=== PATIENT | male | born 1950 | race African-American/Black ===

== ENCOUNTER 2017-03-28 02:53 | Emergency (ER) | payer OTHER ==
[~2017-03-28] VITALS: Ht 188 cm; Wt 88.0 kg
[~2017-03-28 02:53] MED LIST: 1-ME1LIQ PO; ALLO100T PO; ASPI81TA82 PO; HYDR-3533 PO; INDO50CA PO; LISI-357 PO; METF850T PO; PRED20 PO; SIMV40 PO
[2017-03-28 02:57] VITALS: BP 180/84; PULSE 106; RESP 16; TEMP 98.6; O2SAT 98
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
[2017-03-28] MEDS ORDERED: CLINDAMYCIN IV ONE (04:15)
[2017-03-28] MEDS ORDERED: SODIUM CHLORIDE 0.9% IV ONE (04:15)
[2017-03-28] MEDS ORDERED: SODIUM CHLOR 0.9% 1000 ML INJ 1,000 ML IV ONE (04:15)
[2017-03-28] MEDS ORDERED: TETANUS/DIPHTHERIA TOXOID ADULT 0.5 ML VIAL IM ONE (04:15)
[2017-03-28 04:41] LABS: AUTOMATED NEUTROPHIL # 3.6 TH/MM3 (1.8-7.7); BASOPHIL % 0.3 % (0.0-2.0); EOSINOPHIL # 0.4 TH/MM3 (0-0.4); EOSINOPHIL % 5.9 % (0.0-4.0); HEMATOCRIT 44.6 % (39.0-51.0); LYMPH % 24.2 % (9.0-44.0); LYMPHOCYTE # 1.5 TH/MM3 (1.0-4.8); MEAN CELL VOLUME 74.5 FL (80.0-100.0); MEAN CORPUSCULAR HEMOGLOBIN 23.5 PG (27.0-34.0); MEAN CORPUSCULAR HGB CONC 31.6 % (32.0-36.0); MONO % 11.8 % (0.0-8.0); NEUT % 57.8 % (16.0-70.0); PLATELET COUNT 224 TH/MM3 (150-450); RED BLOOD COUNT 5.99 MIL/MM3 (4.50-5.90); RED CELL DISTRIBUTION WIDTH 15.4 % (11.6-17.2); WHITE BLOOD COUNT 6.2 TH/MM3 (4.0-11.0)
[2017-03-28] MEDS ORDERED: CLINDAMYCIN INJ 600 MG in SODIUM CHLORIDE 0.9% INJ 100 ML IV ONE (04:45)
[2017-03-28 04:51] LABS: HEMO FLAGS AUTO DIFF
[2017-03-28 05:05] LABS: BICARBONATE 22.6 MEQ/L (21.0-32.0); POTASSIUM 4.2 MEQ/L (3.5-5.1)
[2017-03-28 05:28] LABS: SCAN/DIFF AUTO DIFF CONFIRMED
[2017-03-28] MEDS ORDERED: IOHEXOL 350 MG/ML 10 ML VIAL (for RAD DIAG) IV ONE (05:48)
--- NOTE | 2017-03-28 06:07 | RADRPT ---
EXAM DATE/TIME: 03/28/2017 05:45 [facility] COMPARISON: Report only CT ABDOMEN & PELVIS W CONTRAST, November 06, 2010, 22:46. INDICATIONS : Redness and swelling on skin. Evaluate abscess. IV CONTRAST: 100 cc Omnipaque 350 (iohexol) IV ORAL CONTRAST: No oral contrast ingested. RADIATION DOSE: 7.42 CTDIvol (mGy) MEDICAL HISTORY : Hypertension. Diabetes mellitus type 2. Liver laceration. SURGICAL HISTORY : Liver laceration repair. ENCOUNTER: Initial ACUITY: 2 weeks PAIN SCALE: 6/10 LOCATION: anterior abdomen TECHNIQUE: Volumetric scanning of the abdomen and pelvis was performed. Using automated exposure control and ad justment of the mA and/or kV according to patient size, radiation dose was kept as low as reasonably achievable to obtain optimal diagnostic quality images. FINDINGS: LOWER LUNGS: Mild bibasilar atelectasis. LIVER: The liver is fatty infiltrated. Small stones are seen in the gallbladder. No duct stone or ductal dil atation. SPLEEN: Normal size without lesion. PANCREAS: Within normal limits. KIDNEYS: Normal in size and shape. There is no mass, stone or hydronephrosis. ADRENAL GLANDS: Within normal limits. VASCULAR: There is an abdominal aortic aneurysm with mural thrombus. The vessel measures approximately 3.9 cm m aximum. Similar findings are seen of the iliac arteries. Right iliac artery measures 2.7 cm maximum, the left around 1 cm. BOWEL/MESENTERY: The stomach, small bowel, and colon demonstrate no acute abnormality. There is no free intraperitone al air or fluid. The appendix is well-visualized, normal. ABDOMINAL WALL: The skin and subcutaneous tissues at the umbilicus are indurated. A very superficial fluid collection just beneath the skin is seen slightly left of midline, measures about 11 mm in size, series 2 image 52. No evidence of leak or impending rupture. RETROPERITONEUM: There is no lymphadenopathy. BLADDER: No wall thickening or mass. REPRODUCTIVE: Heterogeneous enlargement of the prostate. INGUINAL: There is no lymphadenopathy or hernia. MUSCULOSKELETAL: No acute bony abnormality. CONCLUSION: 1. Focal skin and superficial subcutaneous induration at the umbilicus. 11 mm abscess is seen just be neath the skin. There is a tiny fat-containing umbilical hernia but does not appear to be directly co ntributory. There is no bowel herniation. 2. There is aneurysmal dilatation of the abdominal aorta and right common iliac artery with atheroscl erosis and mural thrombus. No inflammatory changes or other evidence of leak or impending rupture. 3. Fatty liver. 4. Small stones in an otherwise normal-appearing gallbladder. No ductal stone or ductal dilatation. 5. Trace atelectasis of both lung bases. Jourdan Moon MD on March 28, 2017 at 5:57 Board Certified Radiologist. This report was verified electronically.
[2017-03-28] MEDS ORDERED: HYDR-3533 PO (06:28)
== END 2017-03-28 07:37 | disposition home or self-care (01) ==
LOC: NEPD 02:53
DX: L02.211 Cutaneous abscess of abdominal wall (principal); I71.4 Abdominal aortic aneurysm, without rupture; E11.9 Type 2 diabetes mellitus without complications; I10 Essential (primary) hypertension; E78.00 Pure hypercholesterolemia, unspecified; Z23 Encounter for immunization; Z79.84 Long term (current) use of oral hypoglycemic drugs; Z87.2 Personal history of diseases of the skin and subcutaneous tissue; Z87.891 Personal history of nicotine dependence
CPT/HCPCS: 10060; 74177; 80048; 85025; 90471; 90714; 96374; 99284; J7030; Q9967

== ENCOUNTER 2017-06-20 01:30 | Emergency (ER) | payer OTHER ==
[~2017-06-20] VITALS: Ht 188 cm; Wt 88.0 kg
[2017-06-20 01:32] VITALS: BP 157/97; PULSE 92; RESP 16; TEMP 98.4; O2SAT 98
[2017-06-20] MEDS ORDERED: SODIUM CHLOR 0.9% 1000 ML INJ 1,000 ML IV SCH (01:59)
[2017-06-20] MEDS ORDERED: SODIUM CHLORIDE 0.9% FLUSH 10 ML FLUSH IV FLUSH PRN (02:00)
[2017-06-20 02:09] VITALS: O2SAT 98
[2017-06-20] MEDS ORDERED: ASPI81CH37 CHEW (02:13)
[2017-06-20] MEDS ORDERED: SIMV20TA PO (02:13)
[2017-06-20] MEDS ORDERED: CARV3.12 PO (02:13)
[2017-06-20] MEDS ORDERED: LISI2.5T3 PO (02:13)
[2017-06-20] MEDS ORDERED: AMLO2.5T PO (02:13)
[2017-06-20] MEDS ORDERED: METF1000 PO (02:13)
[2017-06-20] MEDS ORDERED: NOVORP2 SQ (02:13)
--- NOTE | 2017-06-20 02:19 | PD ---
HPI Chief Complaint: Abdominal Pain Time Seen by Provider: 02:10 Travel History International Travel<30 days: No Contact w/Intl Traveler<30days: No Traveled to known affect area: No History of Present Illness HPI Patient is a 66-year-old male history of hypertension, hyperlipidemia, diabetes , AAA, presents to emergency room with complaints of abdominal pain. Patient reports that he had a few episodes of diarrhea this afternoon, reports that this has since resolved. Patient reports that around 8:30 PM tonight, he began to have increased right lower quadrant pain. Patient reports the pain has been constant, nothing makes pain better or worse. Patient reports that he has had no nausea or vomiting. Patient denies any fevers or chills. Patient reports that he was concerned as in February, he was diagnosed with a 3.9 cm AAA with mural thrombus which the LA has been following. Patient with no chest pain or shortness of breath at this time. Patient with no radiating pain. Patient denies dysuria, urinary urgency or frequency. PFSH Past Medical History Blood Disorders: No Anxiety: No Depression: No Heart Rhythm Problems: No Cancer: No Cardiac Catheterization: No Cardiovascular Problems: Yes (HTN, AAA) High Cholesterol: Yes Congestive Heart Failure: No Diabetes: Yes Patient Takes Glucophage: Yes (06/19/17) Gastrointestinal Disorders: No Genitourinary: No Hypertension: Yes Implanted Vascular Access Dvce: No Musculoskeletal: No Neurologic: No Reproductive: No Respiratory: No Immunizations Current: Yes Past Surgical History Abdominal Surgery: Yes (LIVER LAC REPAIR) Coronary Artery Bypass Graft: No Family History Family Myocardial Infarction: Yes (maybe mother) Social History Alcohol Use: Yes (WEEKENDS) Tobacco Use: No (/2 PPD QUIT IN JUL 2016) Substance Use: No Allergies-Medications (Allergen,Severity, Reaction): Coded Allergies: No Known Allergies (Verified , 06/20/17) Reported Meds & Prescriptions Reported Meds & Active Scripts Active Lortab (Hydrocodone-Acetaminophen) 5-325 Mg Tab 1 Tab PO Q4H PRN Reported Aspirin Low Dose (Aspirin) 81 Mg Chew 81 Mg CHEW DAILY Lisinopril 2.5 Mg Tab 2.5 Mg PO DAILY Simvastatin 20 Mg Tab 20 Mg PO DAILY Metformin (Metformin HCl) 1,000 Mg Tab 1,000 Mg PO BIDPC With meals Carvedilol 3.125 Mg Tab 3.125 Mg PO BID Amlodipine (Amlodipine Besylate) 2.5 Mg Tab 2.5 Mg PO DAILY Novolin R Inj (Insulin Human Regular) 1,000 Unit/10 Ml Vial 13 Units SQ DAILY Review of Systems General / Constitutional: No: Fever Eyes: No: Visual changes HENT: No: Headaches Cardiovascular: No: Chest Pain or Discomfort Respiratory: No: Shortness of Breath Gastrointestinal: Positive: Abdominal Pain Genitourinary: No: Dysuria Musculoskeletal: No: Pain Skin: No Rash Neurologic: No: Weakness Psychiatric: No: Depression Endocrine: No: Polydipsia Hematologic/Lymphatic: No: Easy Bruising Physical Exam Narrative GENERAL: Mild distress SKIN: Focused skin assessment warm/dry. HEAD: Atraumatic. Normocephalic. EYES: Pupils equal and round. No scleral icterus. No injection or drainage. ENT: No nasal bleeding or discharge. Mucous membranes pink and moist. NECK: Trachea midline. No JVD. CARDIOVASCULAR: Regular rate and rhythm. No murmur appreciated. RESPIRATORY: No accessory muscle use. Clear to auscultation. Breath sounds equal bilaterally. GASTROINTESTINAL: Abdomen soft, increased tenderness to the right lower quadrant with no rebound or guarding on exam. MUSCULOSKELETAL: No obvious deformities. No clubbing. No cyanosis. No edema. NEUROLOGICAL: Awake and alert. No obvious cranial nerve deficits. Motor grossly within normal limits. Normal speech. PSYCHIATRIC: Appropriate mood and affect; insight and judgment normal. Data Data Last Documented VS Vital Signs Date Time Temp Pulse Resp B/P Pulse Ox O2 Delivery O2 Flow Rate FiO2 06/20/17 04:00 70 13 127/85 94 Room Air 06/20/17 01:32 98.4 Orders Complete Blood Count With Diff (06/20/17 01:59) Comprehensive Metabolic Panel (06/20/17 01:59) Lipase (06/20/17 01:59) Prothrombin Time / Inr (Pt) (06/20/17 01:59) Act Partial Throm Time (Ptt) (06/20/17 01:59) Urinalysis - C+S If Indicated (06/20/17 01:59) Iv Access Insert/Monitor (06/20/17 01:59) Ecg Monitoring (06/20/17 01:59) Oximetry (06/20/17 01:59) Sodium Chlor 0.9% 1000 Ml Inj (Ns 1000 M (06/20/17 01:59) Sodium Chloride 0.9% Flush (Ns Flush) (06/20/17 02:00) Ct Abd/Pel W Iv Contrast(Rout) (06/20/17 02:14) Iohexol 350 Inj (Omnipaque 350 Inj) (06/20/17 03:52) Labs Laboratory Tests Test 06/20/17 02:05 White Blood Count 6.7 TH/MM3 Red Blood Count 5.49 MIL/MM3 Hemoglobin 13.4 GM/DL Hematocrit 40.9 % Mean Corpuscular Volume 74.4 FL Mean Corpuscular Hemoglobin 24.3 PG Mean Corpuscular Hemoglobin 32.7 % Concent Red Cell Distribution Width 15.8 % Platelet Count 209 TH/MM3 Mean Platelet Volume 8.4 FL Neutrophils (%) (Auto) 46.5 % Lymphocytes (%) (Auto) 39.6 % Monocytes (%) (Auto) 10.6 % Eosinophils (%) (Auto) 2.8 % Basophils (%) (Auto) 0.5 % Neutrophils # (Auto) 3.1 TH/MM3 Lymphocytes # (Auto) 2.6 TH/MM3 Monocytes # (Auto) 0.7 TH/MM3 Eosinophils # (Auto) 0.2 TH/MM3 Basophils # (Auto) 0.0 TH/MM3 CBC Comment DIFF FINAL Differential Comment Prothrombin Time 10.3 SEC Prothromb Time International 0.9 RATIO Ratio Activated Partial 28.2 SEC Thromboplast Time Urine Color YELLOW Urine Turbidity CLEAR Urine pH 5.5 Urine Specific [employer] 1.014 Urine Protein NEG mg/dL Urine Glucose (UA) NEG mg/dL Urine Ketones NEG mg/dL Urine Occult Blood NEG Urine Nitrite NEG Urine Bilirubin NEG Urine Urobilinogen LESS THAN 2.0 MG/DL Urine Leukocyte Esterase NEG Urine RBC LESS THAN 1 /hpf Urine WBC 1 /hpf Urine Squamous Epithelial <1 /hpf Cells Urine Bacteria RARE /hpf Urine Mucus FEW /lpf Microscopic Urinalysis Comment CULT NOT INDICATED Sodium Level 138 MEQ/L Potassium Level 3.8 MEQ/L Chloride Level 103 MEQ/L Carbon Dioxide Level 26.1 MEQ/L Anion Gap 9 MEQ/L Blood Urea Nitrogen 9 MG/DL Creatinine 1.11 MG/DL Estimat Glomerular Filtration 80 ML/MIN Rate Random Glucose 135 MG/DL Calcium Level 8.7 MG/DL Total Bilirubin 0.4 MG/DL Aspartate Amino Transf 21 U/L (AST/SGOT) Alanine Aminotransferase 33 U/L (ALT/SGPT) Alkaline Phosphatase 94 U/L Total Protein 7.7 GM/DL Albumin 3.7 GM/DL Lipase 215 U/L MDM Medical Decision Making Medical Screen Exam Complete: Yes Emergency Medical Condition: Yes Interpretation(s) Vital Signs Date Time Temp Pulse Resp B/P Pulse Ox O2 Delivery O2 Flow Rate FiO2 06/20/17 02:09 98 Room Air 06/20/17 01:32 98.4 92 16 157/97 98 Differential Diagnosis Differential includes ruptured aortic aneurysm, colitis, colitis, appendicitis, constipation, cystitis, UTI Narrative Course Patient is a 66-year-old male who presents to emergency room with complaints of right lower quadrant abdominal pain. Pain started around 8:30 PM last night and has been constant. On evaluation, patient has right lower quadrant pain with guarding on exam, plan to obtain CT abdomen pelvis to evaluate for possible appendicitis and to evaluate abdominal aortic aneurysm which is 3.9 centimeters size last measured in February 2017. Vital Signs Date Time Temp Pulse Resp B/P Pulse Ox O2 Delivery O2 Flow Rate FiO2 06/20/17 02:09 98 Room Air 06/20/17 01:32 98.4 92 16 157/97 98 Laboratory Tests Test 06/20/17 02:05 White Blood Count 6.7 TH/MM3 (4.0-11.0) Red Blood Count 5.49 MIL/MM3 (4.50-5.90) Hemoglobin 13.4 GM/DL (13.0-17.0) Hematocrit 40.9 % (39.0-51.0) Mean Corpuscular Volume 74.4 FL (80.0-100.0) Mean Corpuscular Hemoglobin 24.3 PG (27.0-34.0) Mean Corpuscular Hemoglobin 32.7 % Concent (32.0-36.0) Red Cell Distribution Width 15.8 % (11.6-17.2) Platelet Count 209 TH/MM3 (150-450) Mean Platelet Volume 8.4 FL (7.0-11.0) Neutrophils (%) (Auto) 46.5 % (16.0-70.0) Lymphocytes (%) (Auto) 39.6 % (9.0-44.0) Monocytes (%) (Auto) 10.6 % (0.0-8.0) Eosinophils (%) (Auto) 2.8 % (0.0-4.0) Basophils (%) (Auto) 0.5 % (0.0-2.0) Neutrophils # (Auto) 3.1 TH/MM3 (1.8-7.7) Lymphocytes # (Auto) 2.6 TH/MM3 (1.0-4.8) Monocytes # (Auto) 0.7 TH/MM3 (0-0.9) Eosinophils # (Auto) 0.2 TH/MM3 (0-0.4) Basophils # (Auto) 0.0 TH/MM3 (0-0.2) CBC Comment DIFF FINAL Differential Comment Prothrombin Time 10.3 SEC (9.8-11.6) Prothromb Time International 0.9 RATIO Ratio Activated Partial 28.2 SEC Thromboplast Time (24.3-30.1) Urine Color YELLOW (YELLW/STRAW) Urine Turbidity CLEAR (CLEAR) Urine pH 5.5 (5.0-8.5) Urine Specific [place] 1.014 (1.002-1.035) Urine Protein NEG mg/dL (NEG-TRACE) Urine Glucose (UA) NEG mg/dL (NEG) Urine Ketones NEG mg/dL (NEG) Urine Occult Blood NEG (NEG) Urine Nitrite NEG (NEG) Urine Bilirubin NEG (NEG) Urine Urobilinogen LESS THAN 2.0 MG/DL (LESS THAN 2.0) Urine Leukocyte Esterase NEG (NEG) Urine RBC LESS THAN 1 /hpf (0-3) Urine WBC 1 /hpf (0-5) Urine Squamous Epithelial <1 /hpf (0-5) Cells Urine Bacteria RARE /hpf (NONE) Urine Mucus FEW /lpf (OCC) Microscopic Urinalysis Comment CULT NOT INDICATED Sodium Level 138 MEQ/L (136-145) Potassium Level 3.8 MEQ/L (3.5-5.1) Chloride Level 103 MEQ/L (98-107) Carbon Dioxide Level 26.1 MEQ/L (21.0-32.0) Anion Gap 9 MEQ/L (5-15) Blood Urea Nitrogen 9 MG/DL (7-18) Creatinine 1.11 MG/DL (0.60-1.30) Estimat Glomerular Filtration 80 ML/MIN (>89) Rate Random Glucose 135 MG/DL (74-106) Calcium Level 8.7 MG/DL (8.5-10.1) Total Bilirubin 0.4 MG/DL (0.2-1.0) Aspartate Amino Transf 21 U/L (15-37) (AST/SGOT) Alanine Aminotransferase 33 U/L (12-78) (ALT/SGPT) Alkaline Phosphatase 94 U/L (45-117) Total Protein 7.7 GM/DL (6.4-8.2) Albumin 3.7 GM/DL (3.4-5.0) Lipase 215 U/L (73-393) CT abdomen pelvis shows a aortic iliac aneurysm with no change when compared to prior. There was a maximum aortic diameter of 4.2 cm. I reviewed all labs and all studies as well as all labs and all findings with patient detail. Patient will follow-up with his primary care doctor and return to the emergency room as needed. Signs and symptoms of an acute abdomen was reviewed with patient, he will return to ER if he develops any of these symptoms Diagnosis Primary Impression: Abdominal aortic aneurysm (AAA) 3.0 cm to 5.5 cm in diameter in male Additional Impression: Abdominal pain Patient Instructions: General Instructions Additional Instructions: Please provide patient with a copy of his lab work and studies at discharge Return to emergency room if symptoms worsen or progress Return to the emergency room as needed Please follow up with your primary care doctor Disposition: 01 DISCHARGE HOME Condition: Stable Alexandrea Cedeno DO Jun 20, 2017 02:19 Alexandrea Cedeno DO Jun 20, 2017 02:19
[2017-06-20 02:36] LABS: AUTOMATED NEUTROPHIL # 3.1 TH/MM3 (1.8-7.7); BASOPHIL % 0.5 % (0.0-2.0); EOSINOPHIL # 0.2 TH/MM3 (0-0.4); EOSINOPHIL % 2.8 % (0.0-4.0); HEMATOCRIT 40.9 % (39.0-51.0); HEMO FLAGS DIFF FINAL; LYMPH % 39.6 % (9.0-44.0); LYMPHOCYTE # 2.6 TH/MM3 (1.0-4.8); MEAN CELL VOLUME 74.4 FL (80.0-100.0); MEAN CORPUSCULAR HEMOGLOBIN 24.3 PG (27.0-34.0); MEAN CORPUSCULAR HGB CONC 32.7 % (32.0-36.0); MONO % 10.6 % (0.0-8.0); NEUT % 46.5 % (16.0-70.0); PLATELET COUNT 209 TH/MM3 (150-450); RED BLOOD COUNT 5.49 MIL/MM3 (4.50-5.90); RED CELL DISTRIBUTION WIDTH 15.8 % (11.6-17.2); WHITE BLOOD COUNT 6.7 TH/MM3 (4.0-11.0)
[2017-06-20 02:49] LABS: BACTERIA, URINE RARE /hpf; BLOOD, URINE NEG (NEG); COMMENT (UR) CULT NOT INDICATED; CULTURE IF INDICATED CULT NOT INDICATED; GLUCOSE,URINE NEG (NEG); KETONE, URINE NEG (NEG); MUCUS URINE FEW /lpf (OCC); NITRITE,URINE NEG (NEG); PH, URINE 5.5 (5.0-8.5); SQUAMOUS EPITHELIAL CELL URINE <1 /hpf (0-5); URINE COLOR YELLOW (YELLW/STRAW)
[2017-06-20 02:55] LABS: APTT (PATIENT) 28.2 SEC (24.3-30.1); INTERNATIONAL NORMALIZED RATIO 0.9 RATIO; PROTHROMBIN TIME - PATIENT 10.3 SEC (9.8-11.6)
[2017-06-20 03:04] LABS: ALT (GPT) 33 U/L (12-78); ANION GAP 9 MEQ/L (5-15); AST (GOT) 21 U/L (15-37); BICARBONATE 26.1 MEQ/L (21.0-32.0); BLOOD UREA NITROGEN 9 MG/DL (7-18); CHLORIDE 103 MEQ/L (98-107); GLOMERULAR FILTRATION RATE 80 ML/MIN (>89); POTASSIUM 3.8 MEQ/L (3.5-5.1); SODIUM (NA) 138 MEQ/L (136-145)
[2017-06-20 03:06] LABS: ALKALINE PHOSPHATASE 94 U/L (45-117); TOTAL BILIRUBIN ADULT 0.4 MG/DL (0.2-1.0)
[2017-06-20] MEDS ORDERED: IOHEXOL 350 MG/ML 10 ML VIAL (for RAD DIAG) IV ONE (03:52)
[2017-06-20 04:00] VITALS: BP 127/85; PULSE 70; RESP 13; O2SAT 94
--- NOTE | 2017-06-20 04:19 | RADRPT ---
EXAM DATE/TIME: 06/20/2017 03:43 [facility] COMPARISON: CT ABDOMEN & PELVIS W CONTRAST, March 28, 2017, 5:45. INDICATIONS : Abdominal pain. IV CONTRAST: 100 cc Omnipaque 350 (iohexol) IV ORAL CONTRAST: No oral contrast ingested. RADIATION DOSE: 9.64 CTDIvol (mGy) MEDICAL HISTORY : Hypertension. Aneurysm, abdominal. Diabetes mellitus type 2. SURGICAL HISTORY : Liver laceration repair. ENCOUNTER: Initial ACUITY: 1 day PAIN SCALE: 8/10 LOCATION: abdomen TECHNIQUE: Volumetric scanning of the abdomen and pelvis was performed. Using automated exposure control and ad justment of the mA and/or kV according to patient size, radiation dose was kept as low as reasonably achievable to obtain optimal diagnostic quality images. DICOM format image data is available electro nically for review and comparison. FINDINGS: LOWER LUNGS: Mild bibasilar atelectasis. LIVER: Hepatic steatosis. No evidence of focal mass or biliary ductal dilatation. Dependent calcified gallst ones. SPLEEN: Normal size without lesion. PANCREAS: Within normal limits. KIDNEYS: Normal in size and shape. There is no mass, stone or hydronephrosis. ADRENAL GLANDS: Within normal limits. VASCULAR: Aortoiliac aneurysm with no change in configuration from prior. Dilatation involves the infrarenal ao rta and the right common iliac. Maximum aortic diameter is 4.2 cm. Right common iliac diameter is 2.9 cm. BOWEL/MESENTERY: The stomach, small bowel, and colon demonstrate no acute abnormality. There is no free intraperitone al air or fluid. ABDOMINAL WALL: Within normal limits. RETROPERITONEUM: There is no lymphadenopathy. BLADDER: No wall thickening or mass. REPRODUCTIVE: Prostate enlarged and heterogeneous. No pelvic mass or free fluid. INGUINAL: There is no lymphadenopathy or hernia. MUSCULOSKELETAL: Within normal limits for patient age. CONCLUSION: Grossly stable aortoiliac aneurysm appearance. Hepatic steatosis and gallstones. Mild lung base atelectasis. Jourdan Maldnoado MD on June 20, 2017 at 4:09 Board Certified Radiologist. This report was verified electronically.
== END 2017-06-20 05:01 | disposition home or self-care (01) ==
LOC: NEPC 01:30
DX: I71.4 Abdominal aortic aneurysm, without rupture (principal)
CPT/HCPCS: 74177; 80053; 81001; 83690; 85025; 85610; 85730; 96360; 99285; J7030; Q9967

== ENCOUNTER 2017-08-26 11:50 | Emergency (ER) | payer OTHER ==
[~2017-08-26] VITALS: Ht 185.4 cm; Wt 90.0 kg
[~2017-08-26 11:50] MED LIST changes: -1-ME1LIQ PO; -ALLO100T PO; +AMLO2.5T PO; +ASPI81CH37 CHEW; -ASPI81TA82 PO; +CARV3.12 PO; -INDO50CA PO; -LISI-357 PO; +LISI2.5T3 PO; +METF1000 PO; -METF850T PO; +NOVORP2 SQ; -PRED20 PO; +SIMV20TA PO; -SIMV40 PO
[2017-08-26 11:51] VITALS: BP 151/94; PULSE 96; RESP 18; TEMP 98.3; O2SAT 97
--- NOTE | 2017-08-26 11:56 | PD ---
Physical Exam Time Seen by Provider: 11:56 Narrative 67 y/o male here with pain to left upper back, worse with movement. Vital signs reviewed. Seen at triage desk. Awaiting bed placement. Data Data Last Documented VS Vital Signs Date Time Temp Pulse Resp B/P (MAP) Pulse Ox O2 Delivery O2 Flow Rate FiO2 08/26/17 11:51 98.3 96 18 151/94 (113) 97 Room Air [facility] Medical Record Reviewed: Yes Supervised Visit with MORENO: Jon Thompson Aug 26, 2017 11:56
[2017-08-26] MEDS ORDERED: SODIUM CHLORIDE 0.9% FLUSH 10 ML FLUSH IVF PRN (12:45)
--- NOTE | 2017-08-26 12:46 | PD ---
HPI Chief Complaint: Back/ Neck Pain or Injury Time Seen by Provider: 12:31 Travel History International Travel<30 days: No Contact w/Intl Traveler<30days: No Traveled to known affect area: No History of Present Illness HPI Patient comes in complaining of left upper back pain over his left shoulder blade ongoing for several months. Patient states he spoke to his primary care doctor at the beginning of the a year but do not have anything done about it. Pain is worse with certain movement. Pain improves with rest. Patient denies any associated chest pain, shortness of breath, nausea or tingling anywhere, nausea, vomiting, fevers, trauma, bowel pain, loss or change in bowel or bladder. Patient states he feels it got worse last night. PFSH Past Medical History Blood Disorders: No Anxiety: No Depression: No Heart Rhythm Problems: No Cancer: No Cardiac Catheterization: No Cardiovascular Problems: Yes (AAA) High Cholesterol: Yes Congestive Heart Failure: No Diabetes: Yes Patient Takes Glucophage: Yes Gastrointestinal Disorders: No Genitourinary: No Hypertension: Yes Implanted Vascular Access Dvce: No Musculoskeletal: No Neurologic: No Reproductive: No Respiratory: No Immunizations Current: Yes Past Surgical History Abdominal Surgery: Yes (LIVER LAC REPAIR) Coronary Artery Bypass Graft: No Family History Family Myocardial Infarction: Yes (maybe mother) Social History Alcohol Use: Yes (WEEKENDS) Tobacco Use: No (1/2 PPD QUIT IN JUL 2016) Substance Use: No Allergies-Medications (Allergen,Severity, Reaction): Coded Allergies: No Known Allergies (Verified , 06/20/17) Reported Meds & Prescriptions Reported Meds & Active Scripts Active Reported Aspirin Low Dose (Aspirin) 81 Mg Chew 81 Mg CHEW DAILY Lisinopril 2.5 Mg Tab 2.5 Mg PO DAILY Simvastatin 20 Mg Tab 20 Mg PO DAILY Metformin (Metformin HCl) 1,000 Mg Tab 1,000 Mg PO BIDPC With meals Carvedilol 3.125 Mg Tab 3.125 Mg PO BID Amlodipine (Amlodipine Besylate) 2.5 Mg Tab 2.5 Mg PO DAILY Novolin R Inj (Insulin Human Regular) 1,000 Unit/10 Ml Vial 15 Units SQ DAILY Review of Systems Except as stated in HPI: all other systems reviewed are Neg Physical Exam Narrative GENERAL: Well-developed, well nourished, in no acute distress, and non-ill appearing. SKIN: Focused skin assessment warm and dry. HEAD: Atraumatic. Normocephalic. EYES: Pupils equal and round. EOMI. No scleral icterus. No injection or drainage. ENT: No nasal bleeding or discharge. Mucous membranes pink and moist. NECK: Trachea midline. No JVD. Supple. No nuclear rigidity. CARDIOVASCULAR: Regular rate and rhythm. No murmur appreciated. Radial pulses 2+, nontender, equal bilaterally. RESPIRATORY: No accessory muscle use. No respiratory distress. Clear to auscultation. Breath sounds equal bilaterally. Patient reports tenderness to palpation over left medial scapula were patient states his pain is. There is no crepitus or fluctuation. MUSCULOSKELETAL: No obvious deformities. No clubbing. No cyanosis. No edema. Full range of motion. NEUROLOGICAL: Awake and alert. No obvious cranial nerve deficits. Motor grossly within normal limits. Normal speech. PSYCHIATRIC: Appropriate mood and affect; insight and judgment normal. Data Data Last Documented VS Vital Signs Date Time Temp Pulse Resp B/P (MAP) Pulse Ox O2 Delivery O2 Flow Rate FiO2 08/26/17 13:41 Room Air 08/26/17 13:41 08/26/17 11:51 98.3 96 18 97 Orders Orders Electrocardiogram (08/26/17 12:42) Basic Metabolic Panel (Bmp) (08/26/17 12:42) Ckmb (Isoenzyme) Profile (08/26/17 12:42) Complete Blood Count With Diff (08/26/17 12:42) Magnesium (Mg) (08/26/17 12:42) Prothrombin Time / Inr (Pt) (08/26/17 12:42) Act Partial Throm Time (Ptt) (08/26/17 12:42) Troponin I (08/26/17 12:42) Chest, Single Ap (08/26/17 12:42) Ecg Monitoring (08/26/17 12:42) Bilateral Bp Monitoring (08/26/17 12:42) Iv Access Insert/Monitor (08/26/17 12:42) Oximetry (08/26/17 12:42) Oxygen Administration (08/26/17 12:42) Sodium Chloride 0.9% Flush (Ns Flush) (08/26/17 12:45) CKMB (08/26/17 13:40) CKMB% (08/26/17 13:40) Labs Laboratory Tests Test 08/26/17 13:40 White Blood Count 4.2 TH/MM3 Red Blood Count 5.57 MIL/MM3 Hemoglobin 13.2 GM/DL Hematocrit 42.6 % Mean Corpuscular Volume 76.4 FL Mean Corpuscular Hemoglobin 23.7 PG Mean Corpuscular Hemoglobin Concent 31.1 % Red Cell Distribution Width 15.0 % Platelet Count 203 TH/MM3 Mean Platelet Volume 8.3 FL Neutrophils (%) (Auto) 46.0 % Lymphocytes (%) (Auto) 35.5 % Monocytes (%) (Auto) 13.9 % Eosinophils (%) (Auto) 4.0 % Basophils (%) (Auto) 0.6 % Neutrophils # (Auto) 1.9 TH/MM3 Lymphocytes # (Auto) 1.5 TH/MM3 Monocytes # (Auto) 0.6 TH/MM3 Eosinophils # (Auto) 0.2 TH/MM3 Basophils # (Auto) 0.0 TH/MM3 CBC Comment DIFF FINAL Differential Comment Prothrombin Time 10.8 SEC Prothromb Time International Ratio 1.0 RATIO Activated Partial Thromboplast Time 24.5 SEC Blood Urea Nitrogen 12 MG/DL Creatinine 0.93 MG/DL Random Glucose 123 MG/DL Calcium Level 9.3 MG/DL Magnesium Level 2.1 MG/DL Sodium Level 138 MEQ/L Potassium Level 4.0 MEQ/L Chloride Level 104 MEQ/L Carbon Dioxide Level 27.0 MEQ/L Anion Gap 7 MEQ/L Estimat Glomerular Filtration Rate 98 ML/MIN Total Creatine Kinase 463 U/L Creatine Kinase MB 4.7 NG/ML Creatine Kinase MB % 1.0 % Troponin I 0.02 NG/ML [facility] Medical Decision Making Medical Screen Exam Complete: Yes Emergency Medical Condition: Yes Interpretation(s) Chest x-ray read by the radiologist shows: No acute disease. EKG reviewed by Dr. Torres sinus rhythm ventricular rate of 86. No STEMI. Differential Diagnosis Atypical chest pain, acute coronary syndrome, pneumonia, pneumothorax, costochondritis, musculoskeletal pain, other Narrative Course The patient presented complaining of back pain. There was no history of recent fall or blunt trauma. However, history elicited likely causing muscular pain. There was no evidence to support genitourinary etiology. There is also no evidence to suggest vascular pathology such as AAA dissection. No fevers or other evidence to suspect infectious processes, abscess, osteomyelitis etc. x- ray, EKG, labs were reassuring. The patients neurological exam is normal with normal motor and sensory. There is no saddle paresthesias reported and no bowel or bladder incontinence or retention. I suspect the pain is mechanical in nature. Clinical suspicion, plan of care and management was discussed with the patient. The patient was instructed to follow up with their health care provider. The patient was also instructed to return if the pain worsened, changed, or developed weakness or bowel or bladder trouble. The patient agreed with plan. Patient in no obvious distress upon re-evaluation. All pertinent laboratory/ Radiology result(s) discussed with patient. Discussed patient with Dr. Torres prior to discharge, who is in agreement with plan of care and disposition. Any questions/concerns in reference to patient diagnosis/ condition discussed and clarified prior to patient's discharge. Reinforced sheer importance of close follow up with patient's primary physician or primary care clinic. Instructed patient to return to ED immediately, if symptoms return/ worsen. Patient showed understanding of above instructions. Further instructions and recommendations were detailed in discharge paperwork. Patient ambulated without difficulty out of ED at discharge. Diagnosis Primary Impression: Musculoskeletal back pain Patient Instructions: General Instructions, Musculoskeletal Pain (ED) Additional Instructions: Follow-up with your primary care physician in 3-5 days for reevaluation. Use [id number] Tylenol as needed for pain. Follow instructions on the packaging. Return to the emergency department if symptoms get worse. Disposition: 01 DISCHARGE HOME Condition: Stable Daron Bravo Aug 26, 2017 12:46
--- NOTE | 2017-08-26 13:57 | RADRPT ---
EXAM DATE/TIME: 08/26/2017 13:03 [facility] COMPARISON: CHEST SINGLE AP, January 13, 2016, 22:33. INDICATIONS : Chest pains posterior left chest from scapula radiating into left chest wall. MEDICAL HISTORY : None. SURGICAL HISTORY : None. ENCOUNTER: Initial ACUITY: 1 day PAIN SCORE: 8/10 LOCATION: Left chest FINDINGS: A single view of the chest demonstrates the lungs to be symmetrically aerated without evidence of mas s, infiltrate or effusion. The cardiomediastinal contours are unremarkable. Osseous structures are intact. CONCLUSION: No acute disease. Jerad Obregon MD FACR on August 26, 2017 at 13:56 Board Certified Radiologist. This report was verified electronically.
[2017-08-26 14:08] LABS: AUTOMATED NEUTROPHIL # 1.9 TH/MM3 (1.8-7.7); BASOPHIL % 0.6 % (0.0-2.0); EOSINOPHIL # 0.2 TH/MM3 (0-0.4); HEMATOCRIT 42.6 % (39.0-51.0); HEMO FLAGS DIFF FINAL; LYMPH % 35.5 % (9.0-44.0); LYMPHOCYTE # 1.5 TH/MM3 (1.0-4.8); MEAN CELL VOLUME 76.4 FL (80.0-100.0); MEAN CORPUSCULAR HEMOGLOBIN 23.7 PG (27.0-34.0); MEAN CORPUSCULAR HGB CONC 31.1 % (32.0-36.0); MONO % 13.9 % (0.0-8.0); PLATELET COUNT 203 TH/MM3 (150-450); RED BLOOD COUNT 5.57 MIL/MM3 (4.50-5.90); WHITE BLOOD COUNT 4.2 TH/MM3 (4.0-11.0)
[2017-08-26 14:16] LABS: APTT (PATIENT) 24.5 SEC (24.3-30.1); PROTHROMBIN TIME - PATIENT 10.8 SEC (9.8-11.6)
[2017-08-26 14:26] LABS: MAGNESIUM 2.1 MG/DL (1.5-2.5)
[2017-08-26 14:43] LABS: CKMB 4.7 NG/ML (0.5-3.6)
--- NOTE | 2017-08-27 08:04 | EKG ---
Date Performed: 08/26/2017 Time Performed: 12:07:25 PTAGE: 67 years EKG: Sinus rhythm RIGHT BUNDLE BRANCH BLOCK LEFT ANTERIOR FASCICULAR BLOCK VOLTAGE CRITERIA FOR LVH ABNORMAL ECG Since PREVIOUS TRACING , no significant change noted PREVIOUS TRACIN01/14/2016 05.06 DOCTOR: Sophia Carrion Interpretating Date/Time 08/27/2017 08:02:42
== END 2017-08-26 14:56 | disposition home or self-care (01) ==
LOC: NEPE 11:50
DX: M54.89 Other dorsalgia (principal); R94.31 Abnormal electrocardiogram [ECG] [EKG]; E11.9 Type 2 diabetes mellitus without complications; I10 Essential (primary) hypertension; E78.00 Pure hypercholesterolemia, unspecified; Z79.4 Long term (current) use of insulin; Z86.79 Personal history of other diseases of the circulatory system
CPT/HCPCS: 71010; 80048; 82550; 82552; 83735; 84484; 85025; 85610; 85730; 93005; 99285

== ENCOUNTER 2017-09-05 11:19 | Emergency (ER) | payer OTHER ==
[~2017-09-05] VITALS: Ht 188 cm; Wt 86.0 kg
[~2017-09-05 11:19] MED LIST changes: -HYDR-3533 PO
[2017-09-05 11:20] VITALS: BP 166/89; PULSE 118; RESP 12; TEMP 98.9; O2SAT 98
[2017-09-05] MEDS ORDERED: LIDOCAINE HCL 1% 50 ML VIAL INFIL ONE (12:45)
[2017-09-05 12:47] VITALS: PULSE 86; RESP 18; O2SAT 96
[2017-09-05] MEDS ORDERED: GLIP5TAB8 PO (12:49)
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
== END 2017-09-05 13:45 | disposition home or self-care (01) ==
LOC: NEPE 11:19
DX: L72.3 Sebaceous cyst (principal); B96.89 Other specified bacterial agents as the cause of diseases classified elsewhere; I10 Essential (primary) hypertension
CPT/HCPCS: 10060; 86403; 87070; 87185

== ENCOUNTER 2018-10-08 16:42 | Observation (INO) ==
--- NOTE | 2018-10-08 17:31 | XR ---
EXAM DATE: 10/08/2018 5:28 PM EST AGE/SEX: 68 years / Male INDICATIONS: Chest pain. CLINICAL DATA: This is the patient's initial encounter. Patient reports that signs and symptoms have been present for 3 days and indicates a pain score of 3/10. MEDICAL/SURGICAL HISTORY: Diabetes. Hypertension. None. COMPARISON: [facility], CHEST SINGLE AP, 08/26/2017. . FINDINGS: A single AP view of the chest demonstrates the lungs to be symmetrically aerated without evidence of mass, infiltrate or effusion. The cardiomediastinal contours are unremarkable. Osseous structures a re intact. CONCLUSION: No evidence of acute cardiopulmonary process. Electronically signed by: Aramis Marshall MD 10/08/2018 5:30 PM EST
--- NOTE | 2018-10-08 20:51 | ED ---
HPI General Chief complaint: Chest Pain Stated complaint: Chest Pain Complaint Time Seen by Provider: 10/08/18 20:37 History of Present Illness HPI narrative: 68-year-old male with history of coronary artery disease, diabetes, hypertension, hyperlipidemia, presents for evaluation of chest pain. Symptoms started 2-3 days ago. He describes it as a dull aching pain on the left side of his chest and back which is somewhat worse with movement. Currently however he is asymptomatic. Denies shortness of breath, cough or congestion, abdominal pain, nausea, vomiting, dizziness, lightheadedness. Symptoms are moderate when they are present. He does not recall having this pain before. Denies leg swelling, recent travel, recent surgery. He has no other complaints at this time. Related Data Allergies Allergy/AdvReac Type Severity Reaction Status Date / Time No Known Allergies Allergy Verified 10/08/18 17:04 Review of Systems ROS: all other systems reviewed are negative [facility] Medical History Medical History Diabetes (Acute) HTN (hypertension) (Acute) High cholesterol (Acute) Surgical History Surgical History Hx of abdominal surgery (Acute) Hx of removal of cyst (Acute) Social History Social History Substance History: No History of Abuse Second Hand Smoke Exposure: No Smoking Status: Former smoker How Often Do You Have a Drink Containing Alcohol: 2 to 3 times a week Recent Travel in [facility] within the Last 8 Weeks: No Recent Out of Country Travel within the Last 8 Weeks: No Immunization History Tetanus Immunization: Unsure Exam Narrative Exam Narrative: GENERAL: Well-developed well-nourished male in no acute distress SKIN: Warm and dry. HEAD: Atraumatic. Normocephalic. EYES: Pupils equal and round. No scleral icterus. No injection or drainage. ENT: No nasal bleeding or discharge. Mucous membranes pink and moist. NECK: Trachea midline. No JVD. CARDIOVASCULAR: Regular rate and rhythm. No murmur appreciated. RESPIRATORY: No accessory muscle use. Clear to auscultation. Breath sounds equal bilaterally. GASTROINTESTINAL: Abdomen soft, non-tender, nondistended. Hepatic and splenic margins not palpable. MUSCULOSKELETAL: No obvious deformities. No clubbing. No cyanosis. No edema. No reproducible tenderness to palpation of the back or chest wall or shoulders. NEUROLOGICAL: Awake and alert. No obvious cranial nerve deficits. Motor grossly within normal limits. Normal speech. Course Initial Documented Vital Signs Temperature 98.1 F 10/08/18 17:05 Pulse Rate 89 10/08/18 17:05 Respiratory Rate 20 10/08/18 17:05 Blood Pressure 141/69 H 10/08/18 17:05 Pulse Oximetry 96 10/08/18 17:05 Last Documented Vital Signs Temperature 98.1 F 10/08/18 17:05 Pulse Rate 60 10/08/18 21:04 Respiratory Rate 18 10/08/18 21:04 Blood Pressure 152/85 H 10/08/18 21:04 Pulse Oximetry 99 10/08/18 21:05 Medical Decision Making MDM Narrative Medical decision making narrative: The patient was placed on ECG monitoring pulse oximetry. A 12-lead EKG was obtained in triage which reveals sinus rhythm with a rate of 79, right bundle branch block, fascicular block, T wave inversions noted in the septal leads, present on previous EKG. Lab work, chest x-ray ordered. The patient took a baby aspirin this morning, additional 243 mg of aspirin have been ordered. Lab work is been reviewed. Total CK is mildly elevated at 386. Troponin negative. The patient's pain is atypical however at this point in time given his numerous risk factors the patient will be admitted into the chest pain center for serial cardiac enzymes and rule out purposes. He is agreeable. Medical Screen Exam Complete: Yes Emergency Medical Condition: Yes Differential Diagnosis Differential Diagnosis: Musculoskeletal pain, pericarditis, myocarditis, pulmonary embolism, pneumothorax, acute coronary syndrome Lab Data Result diagrams: 10/08/18 21:00 10/08/18 21:00 Lab Results 10/08/18 10/08/18 10/08/18 Range/Units 21:00 21:00 21:00 WBC 5.4 (4.0-11.0) th/mm3 RBC 5.75 (4.50-5.90) mil/mm3 Hgb 13.9 (13.0-17.0) gm/dL Hct 43.8 (39.0-51.0) % MCV 76.2 L (80.0-100.0) fL MCH 24.1 L (27.0-34.0) pg MCHC 31.7 L (32.0-36.0) % RDW 14.7 (11.6-17.2) % Plt Count 219 (150-450) th/mm3 MPV 8.4 (7.0-11.0) fL Neut % (Auto) 38.9 (16.0-70.0) % Lymph % (Auto) 46.5 H (9.0-44.0) % Ballard % (Auto) 9.9 H (0.0-8.0) % Eos % (Auto) 4.0 (0.0-4.0) % Baso % (Auto) 0.7 (0.0-2.0) % Neut # (Auto) 2.1 (1.8-7.7) th/mm3 Lymph # (Auto) 2.5 (1.0-4.8) th/mm3 [place] # (Auto) 0.5 (0.0-0.9) th/mm3 Eos # (Auto) 0.2 (0.0-0.4) th/mm3 Baso # (Auto) 0.0 (0.0-0.2) th/mm3 WBC Differential . Differential Comment Auto diff final Sodium Cancelled 141 Potassium Cancelled 3.8 Chloride Cancelled 104 Carbon Dioxide Cancelled 29.8 Anion Gap Cancelled 7 BUN Cancelled 11 Creatinine Cancelled 1.05 Estimated GFR Cancelled 85 L Random Glucose Cancelled 96 Calcium Cancelled 8.9 Prot Corrected Calcium Cancelled Magnesium 1.8 (1.5-2.5) mg/dL Total Bilirubin Cancelled 0.4 AST Cancelled 24 ALT Cancelled 32 Alkaline Phosphatase Cancelled 93 Total Creatine Kinase 386 H (39-308) U/L Troponin I Cancelled Less than 0.02 L Total Protein Cancelled 8.3 H Albumin Cancelled 4.3 Imaging Data Radiologist's impression: Chest X-Ray 10/08/18 17:06 CONCLUSION: No evidence of acute cardiopulmonary process. Discharge Plan Discharge Disposition Patient Disposition: 30 Still Patient Discharge Condition Condition: Stable Discharge Details Diagnosis: Chest pain Physicians Team ED Provider: Donald Pate ED Midlevel Provider: Jon Petty Primary Care Provider: Ozzie Pacheco Discharge Instructions Patient Printed Instructions: Chest Pain (ED) Discharge Interventions Interventions: Vital Signs Last Done: 10/08/18 21:04 Status ED Status: With Doctor
[2018-10-08 21:22] LABS: Baso % (Auto) 0.7 % (0.0-2.0); Eos # (Auto) 0.2 th/mm3 (0.0-0.4); Hematocrit 43.8 % (39.0-51.0); Hemoglobin 13.9 gm/dL (13.0-17.0); Lymph # (Auto) 2.5 th/mm3 (1.0-4.8); Lymph % (Auto) 46.5 % (9.0-44.0); Mean Corpuscular HGB Conc 31.7 % (32.0-36.0); Mean Corpuscular Hemoglobin 24.1 pg (27.0-34.0); Mean Corpuscular Volume 76.2 fL (80.0-100.0); Mean Platelet Volume 8.4 fL (7.0-11.0); Mono # (Auto) 0.5 th/mm3 (0.0-0.9); Mono % (Auto) 9.9 % (0.0-8.0); Neut # (Auto) 2.1 th/mm3 (1.8-7.7); Neut % (Auto) 38.9 % (16.0-70.0); Platelet Count 219 th/mm3 (150-450); Red Blood Count 5.75 mil/mm3 (4.50-5.90); Red Cell Distribution Width 14.7 % (11.6-17.2); White Blood Count 5.4 th/mm3 (4.0-11.0)
[2018-10-08 21:44] LABS: Alanine Aminotransferase 32 U/L (12-78); Albumin 4.3 g/dL (3.4-5.0); Anion Gap 7 meq/L (5-15); Aspartate Aminotransferase 24 U/L (15-37); Blood Urea Nitrogen 11 mg/dL (7-18); Calcium 8.9 mg/dL (8.5-10.1); Carbon Dioxide 29.8 meq/L (21.0-32.0); Chloride 104 meq/L (98-107); Glomerular Filtration Rate 85 mL/min (>89); Glucose,Random 96 mg/dL (74-106); Magnesium 1.8 mg/dL (1.5-2.5); Potassium 3.8 meq/L (3.5-5.1); Sodium 141 meq/L (136-145)
--- NOTE | 2018-10-08 21:49 | ECG ---
Date Performed: 10/08/2018 Time Performed: 17:13:11 PTAGE: 68 years EKG: Sinus rhythm RIGHT BUNDLE BRANCH BLOCK LEFT ANTERIOR FASCICULAR BLOCK MODERATE VOLTAGE CRITERIA FOR LVH, CONSIDER NORMAL VARIANT ABNORMAL ECG No significant change from prior electrocardiogram. PREVIOUS TRACING : 08/26/2017 12.07 DOCTOR: Gume Little Interpretating Date/Time 10/11/2018 07:03:53
[2018-10-08 21:51] LABS: Alkaline Phosphatase 93 U/L (45-117); Creatine Kinase 386 U/L (39-308); Total Protein 8.3 g/dL (6.4-8.2)
[2018-10-08 22:03] LABS: CKMB Percent 0.7 % (0.0-4.0); Creatine Kinase MB 2.7 ng/mL (0.5-3.6)
[2018-10-09 00:32] LABS: Creatine Kinase 331 U/L (39-308)
[2018-10-09 00:44] LABS: CKMB Percent 0.8 % (0.0-4.0); Creatine Kinase MB 2.7 ng/mL (0.5-3.6)
[2018-10-09 04:51] LABS: Creatine Kinase 307 U/L (39-308)
[2018-10-09] MEDS ORDERED: Acetaminophen 500 MG Tablet PO PRN (09:49)
[2018-10-09] MEDS ORDERED: Aspirin 325 MG Tablet PO SCH (10:00)
[2018-10-09] MEDS ORDERED: amLODIPine 5 MG Tablet PO SCH (10:00)
[2018-10-09] MEDS ORDERED: Lisinopril 5 MG Tablet PO SCH (10:00)
[2018-10-09] MEDS ORDERED: Dextrose 50% in Water 50 ML Vial IV.PUSH PRN (10:19)
--- NOTE | 2018-10-09 10:19 | P.HPCA ---
History of Present Illness Primary Care Physician: Ozzie Pacheco MD Chief Complaint: Chest pain History of Present Illness: This is a 68-year-old male the presents to ED with history of hypertension, hyperlipidemia, diabetes, and abdominal aortic aneurysm that presents to ED with complaint of a dull left shoulder discomfort for 3 days. It has been intermittent. States that the cyst remains still that the discomfort was not present however seems to move the arm around her does move with the torso the discomfort will recur. Discomfort essentially resolved almost immediately when he stops the movements. States that somewhere along the middle night the discomfort has resolved and no longer hurts to move the arm. Denies history of heart disease. States that stress test before. Upon reviewing records he had a nonischemic Lexiscan 2015. [facility] and was last imaged in November and states that he was told it was stable. History of hypertension, hyperlipidemia, diabetes, abdominal aortic aneurysm. Past tobacco abuse. Denies known CAD. Denies family history of CAD. Quit smoking 2 years ago but prior that he was smoking 1 pack a series daily for 40 years. Has occasional alcohol. Denies illicit drug use. - Diagnosis (1) Chest pain (2) Hypertension (3) Hyperlipidemia (4) Diabetes (5) History of abdominal aortic aneurysm Review of Systems General: Patient denies fevers, chills, and recent travel. HEENT: Patient denies headache, sore throat, difficulty swallowing. Cardiovascular: Has the chest discomfort as mentioned above. Denies sensation of heart beating rapidly or irregularly. No syncope. Denies diaphoresis. Respiratory: Denies shortness of breath or inspirational chest discomfort. Denies coughing wheezing or hemoptysis. GI: Patient denies nausea, vomiting, diarrhea, abdominal pain, bloody stools. Musculoskeletal: He was complaining of left shoulder discomfort, points to the area just inferior of the scapula. Patient denies joint edema. Denies calf pain or edema. Neurovascular: Patient denies numbness, tingling, weakness in extremities. Denies headache. Endocrine: Denies polyuria and polydipsia. Hematologic: Denies easy bruising. Skin: Denies rash or itching. PMFSH - History History Provided By: Patient - Medical History Medical History: Medical History (Last Updated 10/08/18 @ 20:47 by James Green) Diabetes HTN (hypertension) High cholesterol - Surgical History Surgical History: Surgical History (Last Updated 10/08/18 @ 20:47 by James Green) Hx of abdominal surgery Hx of removal of cyst - Tobacco History Second Hand Smoke Exposure: No Smoking Status: Never smoker - Alcohol History How Often Do You Have a Drink Containing Alcohol: 2 to 3 times a week - Substance Use History Substance History: No History of Abuse - Travel History Recent Travel in the [place] Within the Last 8 Weeks: Yes Recent Travel Out of the Country Within the Last 8 Weeks: No - Immunization History Tetanus Immunization: Unsure Medications and Allergies Active Medications: Active Medications Acetaminophen (Tylenol) 500 mg PO Q6H PRN PRN Reason: pain scale 1-5 Hydrocodone Bitart/Acetaminophen ([place] 7.5/325) 1 tab PO Q6H PRN PRN Reason: pain scale 6-10 Albuterol (Duoneb Neb (Prn)) 1 ampul NEB Q4HR NEB PRN PRN Reason: SHORTNESS OF BREATH/WHEEZING Amlodipine Besylate (Norvasc) 5 mg PO DAILY [facility] Aspirin (Aspirin) 325 mg PO DAILY [facility] Atorvastatin Calcium (Lipitor) 40 mg PO DAILY [facility] Carvedilol (Coreg) 3.125 mg PO BID [facility] Insulin Human Regular (Novolin R Correctional Sugar Inj) 0 units SQ ACHS HATTIE; Protocol Lisinopril (Prinivil) 2.5 mg PO DAILY [facility] Miscellaneous (Pill Splitter) 1 each OTHER UNSCH [facility] Sodium Chloride (Ns Flush) 2 ml IV.FLUSH BID [facility] Last Admin: 10/09/18 09:26 Dose: 2 ml Sodium Chloride (Ns Flush) 2 ml IV.FLUSH PRN PRN PRN Reason: FLUSH AFTER USING IV ACCESS Tamsulosin HCl (Flomax) 0.4 mg PO DAILY [facility] Allergies Allergy/AdvReac Type Severity Reaction Status Date / Time No Known Allergies Allergy Verified 10/08/18 17:04 Home Medications Medication Instructions Recorded Confirmed Type amlodipine 5 mg PO DAILY 10/08/18 10/08/18 History aspirin [Aspir-81] 81 mg PO DAILY 10/08/18 10/08/18 History atorvastatin 40 mg PO DAILY 10/08/18 10/08/18 History carvedilol 3.125 mg PO BID 10/08/18 10/08/18 History insulin glargine [Lantus U-100 30 unit SUBCUT DAILY 10/08/18 10/08/18 History Insulin] lisinopril 2.5 mg PO DAILY 10/08/18 10/08/18 History metformin 1,000 mg PO BID 10/08/18 10/08/18 History tamsulosin 0.4 mg PO DAILY 10/08/18 10/08/18 History Exam Vital signs: Vital Signs 10/08/18 17:05 10/08/18 21:04 10/08/18 21:05 Temperature 98.1 F Pulse Rate 89 60 Respiratory Rate 20 18 Blood Pressure 141/69 H 152/85 H Pulse Oximetry 96 97 99 10/08/18 22:38 10/09/18 00:00 10/09/18 00:40 Temperature 97.4 F L Pulse Rate 65 64 66 Respiratory Rate 18 14 Blood Pressure 119/76 122/80 Pulse Oximetry 97 97 10/09/18 04:00 10/09/18 07:53 Temperature 97.5 F L 98.2 F Pulse Rate 74 70 Respiratory Rate 14 14 Blood Pressure 120/73 130/78 Pulse Oximetry 95 95 Intake & Output 10/08/18 10/09/18 10/09/18 18:59 06:59 18:59 Intake Total 240 / 240 Balance 240 / 240 Weight 86.183 kg Intake: Oral 240 / 240 Other: # Voids 0 # Bowel Movements 0 Narrative: GENERAL: This is a well-nourished, well-developed patient, in no apparent distress. Patient speaks in clear complete sentences. Patient is pleasant. HEENT: Head is atraumatic and normocephalic. Neck is supple without lymphadenopathy and trachea is midline. No JVD or carotid bruits. CARDIOVASCULAR: Regular rate and rhythm without murmurs, gallops, or rubs. RESPIRATORY: Clear to auscultation. Breath sounds equal bilaterally. No wheezes , rales, or rhonchi. Chest wall is nontender. No use of accessory muscles. GASTROINTESTINAL: Abdomen is nontender, nondistended. Abdomen soft. No obvious pulsatile mass or bruit. No CVA tenderness. Strong femoral pulses bilaterally. Normal bowel sounds in all quadrants. MUSCULOSKELETAL: Patient is moving upper and lower extremities freely. No calf tenderness or edema, no Homans sign. Strong pulses in upper and lower extremities. NEUROLOGICAL: Patient is alert and oriented. Cranial nerves 2-12 are grossly intact. No focal deficits and speech is clear. SKIN: No rash and turgor is normal. Results 10/08/18 21:00 10/08/18 21:00 Cardiac Enzymes 10/08/18 10/08/18 10/08/18 Range/Units 21:00 21:00 23:55 AST Cancelled 24 CK-MB (CK-2) 2.7 2.7 (0.5-3.6) ng/mL Troponin I Cancelled Less than 0.02 L Less than 0.02 L 10/09/18 Range/Units 03:35 AST CK-MB (CK-2) (0.5-3.6) ng/mL Troponin I Less than 0.02 L CBC 10/08/18 Range/Units 21:00 WBC 5.4 (4.0-11.0) th/mm3 RBC 5.75 (4.50-5.90) mil/mm3 Hgb 13.9 (13.0-17.0) gm/dL Hct 43.8 (39.0-51.0) % Plt Count 219 (150-450) th/mm3 Neut # (Auto) 2.1 (1.8-7.7) th/mm3 Lymph # (Auto) 2.5 (1.0-4.8) th/mm3 [place] # (Auto) 0.5 (0.0-0.9) th/mm3 Eos # (Auto) 0.2 (0.0-0.4) th/mm3 Baso # (Auto) 0.0 (0.0-0.2) th/mm3 Comprehensive Metabolic Panel 10/08/18 10/08/18 Range/Units 21:00 21:00 Sodium Cancelled 141 Potassium Cancelled 3.8 Chloride Cancelled 104 Carbon Dioxide Cancelled 29.8 BUN Cancelled 11 Creatinine Cancelled 1.05 Calcium Cancelled 8.9 AST Cancelled 24 ALT Cancelled 32 Alkaline Phosphatase Cancelled 93 Total Protein Cancelled 8.3 H Albumin Cancelled 4.3 Intake and Output 10/08/18 10/09/18 10/09/18 22:59 06:59 14:59 Intake Total 240 / 240 Balance 240 / 240 Intake: Oral 240 / 240 Other: # Voids 0 # Bowel Movements 0 Weight 86.183 kg - Imaging and Cardiology Imaging: Impressions Chest X-Ray 10/08/18 17:06 CONCLUSION: No evidence of acute cardiopulmonary process. EKG interpretations - EKG EKG shows: sinus rhythm (EKGs are sinus rhythm) Caprini VTE Risk Assessment Caprini VTE Risk Assessment: Moderate/High Risk (score >= 2) Caprini Risk Assessment Model: Point Value = 1 Point Value = 2 Point Value = 3 Point Value = 5 Age 41-60 Minor surgery BMI > 25 kg/m2 Swollen legs Varicose veins or History of unexplained or recurrent spontaneous Oral contraceptives or hormone replacement Sepsis (< 1 month) Serious lung disease, including pneumonia (< 1 month) Abnormal pulmonary function Acute myocardial infarction Congestive heart failure (< 1 month) History of inflammatory bowel disease Medical patient at bed rest Age 61-74 Arthroscopic surgery Major open surgery (> 45 min) Laparoscopic surgery (> 45 min) Malignancy Confined to bed (> 72 hours) Immobilizing plaster cast Central venous access Age >= 75 History of VTE Family history of VTE Factor V Leiden Prothrombin [id number] Lupus anticoagulant Anticardiolipin antibodies Elevated serum homocysteine Heparin-induced thrombocytopenia Other congenital or acquired thrombophilia Stroke (< 1 month) Elective arthroplasty Hip, pelvis, or leg fracture Acute spinal cord injury (< 1 month) Prophylaxis Regimen: Total Risk Factor Score Risk Level Prophylaxis Regimen 0-1 Low Early ambulation 2 Moderate Order ONE of the following: *Sequential Compression Device (SCD) *Heparin 5000 units SQ BID 3-4 Higher Order ONE of the following medications: *Heparin 5000 units SQ TID *Enoxaparin/Lovenox 40 mg SQ daily (WT < 150 kg, CrCl > 30 mL/min) *Enoxaparin/Lovenox 30 mg SQ daily (WT < 150 kg, CrCl > 10-29 mL/min) *Enoxaparin/Lovenox 30 mg SQ BID (WT < 150 kg, CrCl > 30 mL/min) AND/OR *Sequential Compression Device (SCD) 5 or more Highest Order ONE of the following medications: *Heparin 5000 units SQ TID (Preferred with Epidurals) *Enoxaparin/Lovenox 40 mg SQ daily (WT < 150 kg, CrCl > 30 mL/min) *Enoxaparin/Lovenox 30 mg SQ daily (WT < 150 kg, CrCl > 10-29 mL/min) *Enoxaparin/Lovenox 30 mg SQ BID (WT < 150 kg, CrCl > 30 mL/min) AND *Sequential Compression Device (SCD) Assessment and Plan - Assessment (1) Chest pain Code(s): R07.9 - Chest pain, unspecified Status: Acute (2) Hypertension Code(s): I10 - Essential (primary) hypertension Status: Acute (3) Hyperlipidemia Code(s): E78.5 - Hyperlipidemia, unspecified Status: Acute (4) Diabetes Code(s): E11.9 - Type 2 diabetes mellitus without complications Status: Acute (5) History of abdominal aortic aneurysm Code(s): Z86.79 - Personal history of other diseases of the circulatory system Status: Acute - Plan * Chest pain: Patient has had serial cardiac enzymes and EKGs for ruling out purposes. He will be seen by Dr. Mon of cardiology in the chest pain center. He will undergo a Lexiscan. He will be discharged home if the stress test is nonischemic with instructions to follow-up with PCP. Return to ED for interval issues. * Hypertension: Continue medication. * Diabetes: Sliding scale insulin coverage while in chest pain center. Resume medication at discharge. Follow diabetic diet. * Hyperlipidemia: Continue medication. * History of abdominal aortic aneurysm: Patient is to continue follow-up with the [facility]. Patient is stable at this time. He is agreeable to this plan. H&P: Quality - VTE Deep Vein Thrombosis/Pulmonary Embolism Present on Admission: No
[2018-10-09] MEDS ORDERED: Insulin NovoLIN Regular Correctional Sugar Inj SQ SCH (12:00)
[2018-10-09 12:09] VITALS: RESP 16
--- NOTE | 2018-10-09 12:19 | ECG ---
Date Performed: 10/09/2018 Time Performed: 03:36:47 PTAGE: 68 years EKG: Sinus rhythm RIGHT BUNDLE BRANCH BLOCK LEFT ANTERIOR FASCICULAR BLOCK MODERATE VOLTAGE CRITERIA FOR LVH, CONSIDER NORMAL VARIANT ABNORMAL ECG PREVIOUS TRACING : 10/08/2018 23.37 Since previous tracing, no significant change noted DOCTOR: Mehul Mon Interpretating Date/Time 10/09/2018 12:17:48
--- NOTE | 2018-10-09 14:35 | ECG ---
Date Performed: 10/08/2018 Time Performed: 23:37:46 PTAGE: 68 years EKG: SINUS BRADYCARDIA RIGHT BUNDLE BRANCH BLOCK LEFT ANTERIOR FASCICULAR BLOCK MODERATE VOLTAGE CRITERIA FOR LVH, CONSIDER NORMAL VARIANT ABNORMAL ECG PREVIOUS TRACING : 10/08/2018 17.13 Since previous tracing, no significant change noted DOCTOR: Mehul Mon Interpretating Date/Time 10/09/2018 14:35:22
[2018-10-09] MEDS ORDERED: Regadenoson Inj 0.4 MG/5 ML Syringe IV.PUSH ONE (14:52)
--- NOTE | 2018-10-09 16:05 | NM ---
EXAM DATE: 10/09/2018 3:54 PM EST AGE/SEX: 68 years / Male INDICATIONS:Angina. . Dull left shoulder pain. CLINICAL DATA: This is the patient's initial encounter. Patient reports that signs and symptoms have been present for 3 days and indicates a pain score of 4/10. MEDICAL/SURGICAL HISTORY: Diabetes. Hypercholesterolemia. Hypertension. . Abdominal surgery. COMPARISON: [facility], MYOCARDIAL PERF TREADMILL SPECT, 01/14/2016. . No external comparison. DOSE: 8.8 mCi Tc 99m Myoview at rest 26.2 mCi [id number] at stress 0.4 mg Lexiscan STRESS SYMPTOMS: None. EJECTION FRACTION: 55 % TECHNIQUE: The patient underwent pharmacologic stress with infusion of prescribed dose. Continuous ECG tracing was monitored during stress. Gated SPECT imaging was performed after stress and conventi onal SPECT imaging was performed at rest. The examination was performed on a SPECT/CT scanner, both attenuation and non-corrected datasets were reviewed. FINDINGS: Distribution: The maximum perfused segment at stress is in the anterior wall. Perfusion Study: The pattern of perfusion at stress is within normal limits. Gated Study: There are intact wall motion and wall thickening without hypokinetic or dyskinetic segm ents. The ejection fraction is calculated at 55%. RISK CATEGORY: Low (<1% Annual Motality Rate) CONCLUSION: 1. No perceptible significant stress-induced ischemia. 2. Wall motion within normal limits. Electronically signed by: Jourdan Moon MD 10/09/2018 4:04 PM EST
[2018-10-09 16:18] VITALS: BP 132/79; PULSE 73; TEMP 98; O2SAT 94
--- NOTE | 2018-10-10 11:37 | TR ---
Date Performed: 10/09/2018 Time Performed: 14:58:03 DOCTOR: Mehul Mon DRUG LIST: CLINICAL HISTORY: REASON FOR TEST: Angina REASON FOR ENDING: OBSERVATION: CONCLUSION: COMMENTS: Lexiscan stress test was performed under standard four minute protocol. Radionuclide was injected one minute prior to ending the test. No electrocardiographic abormalities were present t o suggest ischemia. Nuclear imaging and interpretation are pending.
== END 2018-10-09 17:15 | disposition home or self-care (01) ==
LOC: NEPE 16:42 → NEDA 16:42 → NEPFCDU 23:00
PROVIDERS: ADMIT Internal Medicine Interventional Cardiology; ATTEND Internal Medicine Interventional Cardiology